=== PATIENT | female | born 1985 | race Caucasian/White ===

== ENCOUNTER 2018-02-27 19:03 | Emergency (ER) | payer BC ==
--- NOTE | 2018-02-27 19:26 | ED ---
Neurological HPI - HPI Summary HPI Summary: Pt is 32 y/o F who is 35 weeks presents to ED with c/o dizziness onset 1800 with spontaneous resolution. Pt was making dinner when she suddenly felt dizzy, LÓPEZ, and had numbness of tongue, lips, face and R hand. Pt had difficulty "getting words to come out" and slurring her words. Denies vision changes, contractions, vaginal bleeding. Yesterday, pt experienced dizziness while seated at approx 1300 which spontaneously resolved after an hour. That episode started with facial numbness and included L hand numbness. Pt slept for a few hours and woke without dizziness. Pt has not similar dizziness episodes in the past. Pt denies PMHx: neuro or cardio. - History of Current Complaint Stated Complaint: 35 WEEKS PREG/DIZZINESS/FACIAL NUMBESS Time Seen by Provider: 02/27/18 19:13 Hx Obtained From: Patient, Family/Automat Watcher Onset/Duration: Sudden Onset - ~1300 this date, Started hours ago, Resolved Onset Severity: Severe Neurological Deficit Location: Facial - Bilateral, tongue, lips, RUE - Hand, LUE - Hand Pain Intensity: 0 Pain Scale Used: 0-10 Numeric Character: Dizzy, Numbness/Tingling, Impaired Speech Alleviating: Rest Associated Signs and Symptoms: Positive: Headache, Confusion, Dizziness, Impaired Speech, Numbness - Allergy/Home Medications Allergies/Adverse Reactions: Allergies Allergy/AdvReac Type Severity Reaction Status Date / Time No Known Allergies Allergy Verified 02/27/18 19:16 Home Medications: Home Medications Levothyroxine Sodium 112 mcg PO DAILY 02/27/18 [History Confirmed 02/27/18] Vit No.129/Iron/Folic [ One Daily] 1 tab PO DAILY 02/27/18 [ History Confirmed 02/27/18] PMH/Surg Hx/FS Hx/Imm Hx Previously Healthy: Yes Cardiovascular History: Denies: Hx Coronary Artery Disease Neurological History: Denies: Hx CVA Infectious Disease History: No Infectious Disease History: Denies: Traveled Outside the [place] in Last 30 Days - Family History Known Family History: Positive: Cardiac Disease, Hypertension, Diabetes - Social History Occupation: Employed Full-time Lives: With Family Review of Systems Negative: Fever Negative: Other - vision changes Negative: Shortness Of Breath Negative: discharge - vaginal bleeding, other - contractions Neurological: Other - dizziness Positive: Headache, Numbness, Slurred Speech All Other Systems Reviewed And Are Negative: Yes Physical Exam - Summary Physical Exam Summary: Appearance: Well-appearing, Well-nourished, lying in bed comfortably Skin: Warm, dry, no obvious rash Eyes: sclera anicteric, no conjunctival pallor ENT: mucous membranes moist, pharynx appears normal Neck: Supple, nontender Respiratory: Clear to auscultation, no signs of respiratory distress Cardiovascular: Normal S1, S2. No murmurs. Normal distal pulses in tibial and radial bilaterally. Abdomen: Soft, nontender, normal active bowel sounds present Musculoskeletal: Normal, Strength/ROM Intact Neurological: A&Ox3, awake and alert, mentation is normal, speech is fluent and appropriate Psychiatric: affect is normal, does not appear anxious or depressed Triage Information Reviewed: Yes Vital Signs On Initial Exam: Initial Vitals Temp Pulse Resp BP Pulse Ox 98.1 F 90 16 113/75 97 02/27/18 19:13 02/27/18 19:13 02/27/18 19:13 02/27/18 19:13 02/27/18 19:13 Vital Signs Reviewed: Yes Diagnostics - Vital Signs Vital Signs Temp Pulse Resp BP Pulse Ox 02/27/18 19:13 98.1 F 90 16 113/75 97 - Laboratory Result Diagrams: 02/27/18 19:54 02/27/18 19:54 Lab Statement: Any lab studies that have been ordered have been reviewed, and results considered in the medical decision making process. - Radiology Brain MRI Xray Interpretation: No Acute Changes - IMPRESSION: 1. NORMAL MRI OF THE BRAIN. 2. NO MRV EVIDENCE OF DURAL VENOUS THROMBOSIS. Radiology Interpretation Completed By: Radiologist - This report has been reviewed by the provider. Brain CT Xray Interpretation: No Acute Changes - IMPRESSION: 1. NORMAL MRI OF THE BRAIN. 2. NO MRV EVIDENCE OF DURAL VENOUS THROMBOSIS. Radiology Interpretation Completed By: Radiologist - This report has been reviewed by the provider. Head MRI Xray Interpretation: No Acute Changes - IMPRESSION: 1. NORMAL MRI OF THE BRAIN. 2. NO MRV EVIDENCE OF DURAL VENOUS THROMBOSIS. Radiology Interpretation Completed By: Radiologist - This report has been reviewed by provider. - EKG 1939 Cardiac Rate: NL - 87 bpm EKG Rhythm: Sinus Rhythm ST Segment: Normal Ectopy: None - Additional Comments Diagnostic Additional Comments: EKG 1939 : NSR at 87 BPM, P waves, QRS complex, and T waves are within normal limits, T waves and intervals are normal, no ischemic changes. This is a normal EKG Course/Dx - Physician Notifications Discussed Care Of Patient With: Swapna Bailey Time Discussed With Above Provider: 19:40 Instructed by Provider To: Other - Discussed further care of patient with provider. 1953 - Radiologist: gave the go for MRI's 2250 - Dr. Bailey: reviewed MRI's and recommended D/C Discharge - Sign-Out/Discharge Documenting (check all that apply): Patient Departure - Discharge Plan Condition: Good Disposition: HOME Patient Education Materials: Paresthesia (ED) Referrals: Swapna Bailey MD [Medical Doctor] - No Primary Care Phys,NOPCP [Primary Care Provider] - Additional Instructions: If the symptoms recur, in particular if you have recurrence of the speech difficulties, he should return as we would likely recommend an expedited workup in the hospital. However a normal MRI is quite reassuring at this point.
[2018-02-27 20:00] LABS: Hematocrit 28 % (35-47); Hemoglobin 9.6 g/dl (12.0-16.0); Mean Corpuscular HGB Conc 34 g/dl (31-36); Mean Corpuscular Hemoglobin 29 pg (27-31); Mean Corpuscular Volume 86 fL (80-97); Mean Platelet Volume 10.5 um3 (7.4-10.4); Platelet Count 101 10^3/ul (150-450); Red Blood Count 3.28 10^6/ul (4.00-5.40); Red Cell Distribution Width 15 % (10.5-15); White Blood Count 8.3 10^3/ul (3.5-10.8)
[2018-02-27 20:25] LABS: EGFR Non-African American 147.3 (>60)
[2018-02-27 20:33] LABS: Urine Appearance Clear; Urine Blood Negative (Negative); Urine Color Straw; Urine Ketones Trace (Negative); Urine Protein Negative (Negative); Urine Specific Gravity 1.003 (1.010-1.030); Urine Urobilinogen Negative (Negative)
[2018-02-27 20:53] LABS: ABS Basophils 0 10^3/ul (0-0.2); ABS Eosinophils 0.1 10^3/ul (0-0.6); ABS Lymphocytes 1.5 10^3/ul (1.0-4.8); ABS Monocytes 0.6 10^3/ul (0-0.8); ABS Nucleated RBC 0 10^3/ul; Eosinophil % 1.4 % (0-6); Lymphocyte % 17.9 % (25-47); Nucleated Red Blood Cells % 0.1
--- NOTE | 2018-02-27 22:12 | RAD ---
HISTORY: transient aphasia,paresthesias of face,r hand COMPARISONS: None TECHNIQUE: Brain MRI: The following sequences were obtained of the head: Sagittal T1-weighted images, axial T2-weighted images, axial FLAIR images, axial susceptibility weighted images, axial T1-weighted images. Additionally, axial diffusion-weighted images were obtained with calculated apparent diffusion coefficients.. MRV: Sagittal and coronal plane MR venography images were acquired. 3-D reformats were created and reviewed. FINDINGS: HEMORRHAGE/INFARCT: There is no hemorrhage or acute infarct. MASSES/SHIFT: There is no mass or shift. EXTRA-AXIAL SPACES/MENINGES: There are no extra-axial fluid collections. SULCI AND VENTRICLES: The sulci and ventricles are normal in size and position for the patient's stated age. CEREBRUM: There are no focal parenchymal abnormalities. BRAINSTEM: There are no focal parenchymal abnormalities. CEREBELLUM: There are no focal parenchymal abnormalities. The cerebellar tonsils are normal in size and position. VEINS AND DURAL SINUSES: The right transverse sinus is diminutive relative to the left. Flow is documented in the cerebral veins and dural sinuses. There is flow identified in the bilateral internal jugular veins. SELLA: The sella is normal. PINEAL: The pineal region is clear. CP ANGLE/TEMPORAL BONES: The labyrinthine structures are grossly normal. VESSELS: Normal flow-voids are noted within the visualized vertebral vasculature. DIFFUSION ABNORMALITIES: There are no diffusion abnormalities. PARANASAL SINUSES/MASTOIDS: The paranasal sinuses are clear. ORBITS: The orbits are unremarkable. BONES AND SOFT TISSUE: No bone or soft tissue abnormalities are noted. IMPRESSION: 1. NORMAL MRI OF THE BRAIN. 2. NO MRV EVIDENCE OF DURAL VENOUS THROMBOSIS.
[2018-02-27 23:07] VITALS: BP 112/75
== END 2018-02-27 23:21 | disposition home or self-care (01) ==
LOC: ED 19:03
DX: O26.893 Other specified pregnancy related conditions, third trimester (principal); R42 Dizziness and giddiness; R51 Headache; R41.0 Disorientation, unspecified; R47.81 Slurred speech; R20.0 Anesthesia of skin; Z3A.35 35 weeks gestation of pregnancy; Z82.49 Family history of ischemic heart disease and other diseases of the circulatory system; Z83.3 Family history of diabetes mellitus
CPT/HCPCS: 36415; 70544; 70551; 80053; 81003; 83605; 84443; 85025; 93005; 99283

== ENCOUNTER 2018-04-01 07:23 | Inpatient (IN) | payer BC ==
[2018-04-01] MEDS ORDERED: Lidocaine 1%* 5 ML VIAL ONE (08:08)
[2018-04-01 08:20] LABS: Hematocrit 34 % (35-47); Hemoglobin 11.4 g/dl (12.0-16.0); Mean Corpuscular HGB Conc 34 g/dl (31-36); Mean Corpuscular Hemoglobin 30 pg (27-31); Mean Corpuscular Volume 90 fL (80-97); Platelet Count 101 10^3/ul (150-450); Red Blood Count 3.75 10^6/ul (4.00-5.40); Red Cell Distribution Width 21 % (10.5-15); White Blood Count 7.2 10^3/ul (3.5-10.8)
[2018-04-01 08:52] LABS: ABS Basophils 0 10^3/ul (0-0.2); ABS Eosinophils 0 10^3/ul (0-0.6); ABS Lymphocytes 1.2 10^3/ul (1.0-4.8); ABS Monocytes 0.5 10^3/ul (0-0.8); ABS Neutrophils 5.4 10^3/ul (1.5-7.7); ABS Nucleated RBC 0 10^3/ul; Eosinophil % 0.7 % (0-6); Lymphocyte % 16.9 % (25-47); Nucleated Red Blood Cells % 0.1
--- NOTE | 2018-04-01 08:59 | HP ---
General Information - General Information Maternal Age: 33 Grav: 4 Para: 2 SAB: 1 IEA: 0 Estimated Due Date: 04/05/18 Determined By: LMP Gestational Age in Weeks/Days: 39 w 3 d Maternal Blood Type and Rh: A Negative - Results this Serology/RPR Result: Non-Reactive Rubella Result: Immune HBsAg Result: Negative HIV Result: Negative GBS Culture Result: Negative Past Medical History Delivery History: Hx Uncomplicated Vaginal Delivery Past Medical History Comment: Hypothyroid, on replacement Past Surgical History Comment: D&C 03/2017 for incomplete spont Pertinent Family History: See Records - Antepartal Records Antepartal Records: Reviewed, Complicated by: - mild gestational thrombocytopenia Review of Systems Constitutional: Comfortable CV Complaint: No Respiratory: Shortness of Breath: No Gastrointestinal: No Nausea/Vomiting Genitourinary: No Leaking Fluid Musculoskeletal: Contractions Neurological: No Headache, No Visual Changes Movement: Normal Exam Allergies/Adverse Reactions: Allergies No Known Allergies Allergy (Verified 04/01/18 08:10) Lab Values - Entire Visit: Laboratory Tests 04/01/18 04/01/18 08:03 08:03 WBC 7.2 RBC 3.75 L Hgb 11.4 L Hct 34 L MCV 90 MCH 30 MCHC 34 RDW 21 H Plt Count 101 L MPV 11.0 H Neut % (Auto) 74.6 Lymph % (Auto) 16.9 L [place] % (Auto) 7.4 H Eos % (Auto) 0.7 Baso % (Auto) 0.4 Absolute Neuts (auto) 5.4 Absolute Lymphs (auto) 1.2 Absolute Monos (auto) 0.5 Absolute Eos (auto) 0 Absolute Basos (auto) 0 Absolute Nucleated RBC 0 Nucleated RBC % 0.1 Blood Type A Negative - Measurements Height: 5 ft 6.5 in Weight: 181 lb Weight in lbs: 181.547397 Body Mass Index (BMI): 28.8 Pre- Weight: 146 lb Weight Gained This : 35 lbs and 0 ozs - Exam Breast: - - soft, no massed Extremities: Edema - trace of ankles Heart: Normal Rhythm/Heart Sounds HEENT: No Significant Findings Lungs: Clear Bilaterally Thyroid: No Thyromegaly - Ultrasound/Biophysical Profile Ultrasound Status: Not Done Targeted Exam Findings Cervical Exam: 3cm Effacement: 80% Station: -1 Presenting Part: Vertex Membrane Status: AROM - at 0849, clear fluid Amniotic Fluid Evaluation: Clear EFM Findings - External Monitor Findings Baseline Heart Rate: 130 External Monitor Findings: Accelerations Present, No Pattern of Variable or Late Decelerations, Variability Moderate External Monitor Findings Comment: category 1 Contractions: Mild - every 4-5 Assessment/Plan - Assessment Multip at 39 w 3 days, scheduled for elective induction, arrives in early labor. Wants epidural when uncomfortable. Wants to expedite labor. AROM done, will start low dose pitocin - Plan Plan: Admit - Anticipate Vaginal Delivery - Date/Time of Admission Date of Admission: 04/01/18 Time of Admission: 08:00
[2018-04-01] MEDS ORDERED: Oxytocin in LR* 20 UNITS/1,000 ML BAG IVPB SCH ×2 (09:00→14:00)
[2018-04-01] MEDS ORDERED: Oxytocin in LR* 20 UNITS/1,000 ML BAG IVPB ONE (09:03)
[2018-04-01] MEDS: Levothyroxine TAB* 112 MCG TAB PO SCH (09:23)
[2018-04-01] MEDS ORDERED: OBEPIDURAL* 250 ML EPIDURAL ONE (10:26)
--- NOTE | 2018-04-01 11:09 | PN ---
Progress Note - Progress Note Date of Service: 04/01/18 Note: Comfortable after epidural. Cervix: 5cm/90%, vtx -1 Contractions every 3 min
[2018-04-01] MEDS ORDERED: Hetastarch 6% in NS* 200 ML IV PRN (11:16)
[2018-04-01] MEDS ORDERED: Sodium Citrate/Citric Acid* 15 ML UDC PO PRN (11:16)
[2018-04-01] MEDS ORDERED: Phenylephrine IV* 40 MCG/ML 10 ML SYRINGE IV PUSH PRN ×2 (11:16)
[2018-04-01] MEDS ORDERED: Famotidine TAB* 20 MG PO PRN (11:16)
[2018-04-01] MEDS ORDERED: OBEPIDURAL* 250 ML EPIDURAL SCH (12:00)
[2018-04-01] MEDS ORDERED: Glycerin ADULT SUPP PR PRN (13:01)
[2018-04-01] MEDS ORDERED: Dibucaine 1% 28.35 GM TUBE PR PRN (13:01)
[2018-04-01] MEDS ORDERED: Tetan/Diph/Pertus SYR(Tdap)* 0.5 ML SYR(BOOSTRIX) use SYR IM ONE (13:01)
[2018-04-01] MEDS ORDERED: Witch Hazel PAD* JAR TOPICAL PRN (13:01)
[2018-04-01] MEDS ORDERED: Acetaminophen TAB* 325 MG PO PRN (13:01)
[2018-04-01] MEDS ORDERED: RHO D Immune Globulin (HUMAN)* 300 MCG = 1,500 I.U. INJ IM ONE (13:01)
--- NOTE | 2018-04-01 13:09 | PROCNOTE ---
[facility] OB: Delivery Note - Nursery Level of Nursery: Regular/Bedside - Perineum Perineal Injury Comment: abrasion with 1 stitch repair Perineal Repair: By Delivering Practioner - Events Delivery Events of Note: Pitocin During Labor - Additional Delivery Notes Additional Delivery Notes: SVB Lfc, OA, over abrasion. Shoulders delivered with maternal effort. CAN, somersaulted through loop. Infant pink with stimulation. Placenta Barber. FF with massage, IV with pitocin running. Mild atony noted, Cytotec 800mcg per rectum given at 1245. Total EBL 300cc. Abrasion repaired with 1 stitch 3-0ccg, no local. Baby with Apgars 8/9, weight 9#6. Mother and baby in good condition
[2018-04-01] MEDS ORDERED: Misoprostol TAB* 200 MCG ONE (13:46)
[2018-04-01] MEDS: Docusate CAP* 100 MG PO SCH (15:23)
[2018-04-01] MEDS: Ibuprofen TAB* 600 MG PO PRN (21:56)
[2018-04-01 22:30] LABS: Hematocrit 33 % (35-47); Hemoglobin 10.8 g/dl (12.0-16.0)
[2018-04-02] MEDS: Levothyroxine TAB* 112 MCG TAB PO SCH (05:00)
[2018-04-02 07:32] LABS: Hematocrit 30 % (35-47); Hemoglobin 10.1 g/dl (12.0-16.0); Mean Corpuscular HGB Conc 34 g/dl (31-36); Mean Corpuscular Hemoglobin 31 pg (27-31); Mean Corpuscular Volume 91 fL (80-97); Mean Platelet Volume 10.2 um3 (7.4-10.4); Platelet Count 87 10^3/ul (150-450); Red Blood Count 3.25 10^6/ul (4.00-5.40); Red Cell Distribution Width 21 % (10.5-15); White Blood Count 8.7 10^3/ul (3.5-10.8)
[2018-04-02] MEDS ORDERED: Ferrous Gluconate TAB* 324 MG TAB PO SCH (09:00)
[2018-04-02] MEDS: Docusate CAP* 100 MG PO SCH ×3 (09:29→21:07)
[2018-04-02] MEDS: Ibuprofen TAB* 600 MG PO PRN (18:38)
[2018-04-03] MEDS: Levothyroxine TAB* 112 MCG TAB PO SCH (06:44)
[2018-04-03 07:45] VITALS: BP 114/70
[2018-04-03] MEDS: Docusate CAP* 100 MG PO SCH (09:17)
[2018-04-03] MEDS: Ibuprofen TAB* 600 MG PO PRN (09:18)
== END 2018-04-03 10:38 | disposition home or self-care (01) | DRG 560 ==
LOC: MCHOBOUT 07:23 → MCHOB 07:54
PROVIDERS: ADMIT Midwife; ATTEND Midwife
PROC: 10907ZC Drainage of Amniotic Fluid, Therapeutic from Products of Conception, Via Natural or Artificial Opening (ICD-10-PCS; principal; 2018-04-01)
PROC: 10E0XZZ Delivery of Products of Conception, External Approach (ICD-10-PCS; 2018-04-01)
PROC: 4A1HX4Z Monitoring of Products of Conception, Cardiac Electrical Activity, External Approach (ICD-10-PCS; 2018-04-01)
PROC: 0HQ9XZZ Repair Perineum Skin, External Approach (ICD-10-PCS; 2018-04-01)
DX: O99.284 Endocrine, nutritional and metabolic diseases complicating childbirth (principal); E03.9 Hypothyroidism, unspecified; O99.12 Other diseases of the blood and blood-forming organs and certain disorders involving the immune mechanism complicating childbirth; D69.6 Thrombocytopenia, unspecified; O69.81X0 Labor and delivery complicated by cord around neck, without compression, not applicable or unspecified; O62.2 Other uterine inertia; Z3A.39 39 weeks gestation of pregnancy; Z37.0 Single live birth; Z67.11 Type A blood, Rh negative; O71.82 Other specified trauma to perineum and vulva
CPT/HCPCS: 36415; 85014; 85018; 85025; 85027; 85461; 86850; 86900; 86901; A9270-GY; J2790

== ENCOUNTER → 2018-08-05 10:16 | Day surgery (SDC) | payer BC ==
[~2018-08-05 10:16] MED LIST: Acetaminophen IV 1GM/100ML * 1,000 MG/100 ML VIAL IVPB ONE; Buffered Lidocaine 0.9% SYRIN* 5 ML/SYR SYRINGE INTRADERM ONE; Bupivacaine 0.5% W/EPI SDV* 30 ML VIAL ONE; Dexamethasone IV* 4 MG/ML 1 ML (4 MG) ONE; DiMENhydriNATE IV* 50 MG/ML VIAL IV PUSH PRN; Famotidine IV* 10 MG/ML 2 ML (20 mg) IV ONE; Famotidine IV* 10 MG/ML 2 ML (20 mg) ONE; HYDROmorphone INJ1* 1 MG/ML SYRINGE IV PRN; Ketorolac INJ* 30 MG/ML 1 ML VIAL ONE; Lactated Ringers 1000 ML Bag* 1,000 ML IV SCH; Lidocaine 2% PF * 5 ML VIAL ONE; Midazolam* 1 MG/ML 5 ML VIAL (5 MG) ONE; Naloxone* 0.4 MG/ML 1 ML VIAL IV PRN; Ondansetron INJ* 2 MG/ML VIAL ONE; Propofol* 10 MG/ML 20 ML BTL ONE; Succinylcholine* 20 MG/ML 10 ML VIAL ONE; fentaNYL* 50 MCG/ML 2 ML VIAL (100 MCG VIAL) ONE
[2018-08-05 13:27] VITALS: BP 117/79
--- NOTE | 2018-08-05 21:09 | OP ---
DATE OF OPERATION: 08/05/18 - [facility] DATE OF : 87 SURGEON: Dr. Phipps. RESIDENTIAL TREATMENT SPECIALIST: None. ANESTHESIA: General endotracheal tube. PRE-OP DIAGNOSIS: Desires sterilization. POST-OP DIAGNOSIS: Desires sterilization. OPERATIVE PROCEDURE: Laparoscopic bilateral tubal ligation. ESTIMATED BLOOD LOSS: Minimal. FINDINGS: Normal-appearing uterus, normal-appearing fallopian tubes and ovaries , normal-appearing cul-de-sac. DESCRIPTION OF PROCEDURE: The patient was identified, procedure identified as a laparoscopic tubal interruption. The patient was taken to the operating room , prepped and draped in the usual fashion in the dorsal lithotomy position under general anesthesia. A small infraumbilical incision was made and a Verses needle was inserted through this. The abdomen was insufflated to 50 mmHg. The Veress needle was removed and the trocar was inserted. Trocar was removed from the sheath and the laparoscope was inserted and above findings were noted. A second incision was made 2 cm above the pubic symphysis in the midline and a second trocar was inserted under direct visualization. The bipolar Kleppinger cautery was placed through the lower trocar site and the right fallopian tube was grasped in its mid portion, followed out to its fimbriated ends and fulgurated x3. The same procedure was carried out on the left after following it out to its fimbriated ends. Good hemostasis was verified. All the instruments removed from the abdomen. The abdomen was deflated of CO2. The skin was closed using Dermabond, and the sponge and sponge stick removed from vagina. The patient returned to recovery room in stable condition. [id number]/[facility] #: [id number] [facility]OSPITALReggie
== END | disposition home or self-care (01) ==
LOC: OR 10:16
PROVIDERS: ATTEND Obstetrics & Gynecology
DX: Z30.2 Encounter for sterilization (principal); E03.9 Hypothyroidism, unspecified
CPT/HCPCS: 81025; J0330; J1100; J1885; J2250; J2405; J2704; J3010